=== PATIENT | female | born 1955 | race Caucasian/White ===

== ENCOUNTER 2017-01-02 08:17 | Emergency (ER) | payer OTHER ==
[2017-01-02 08:17] VITALS: BP 138/79
[~2017-01-02 08:17] MED LIST: CARVEDILOL PO; LISINOPRIL10 MG PO; LOT10 PO; MAGNESIUM OXID400 MG PO; MOT800 PO; PRO40 PO; ROB750 PO; VIT B12; VITAMIN D2000 I3 PO; ZETIA10 M1 PO
== END 2017-01-02 09:25 | disposition home or self-care (01) ==
LOC: ED 08:17
DX: S33.5XXA Sprain of ligaments of lumbar spine, initial encounter (principal); I10 Essential (primary) hypertension; Z91.018 Allergy to other foods; Z79.899 Other long term (current) drug therapy; X50.1XXA Overexertion from prolonged static or awkward postures, initial encounter; Y93.89 Activity, other specified; Y99.8 Other external cause status; Y92.89 Other specified places as the place of occurrence of the external cause
CPT/HCPCS: J1885

== ENCOUNTER → 2017-01-13 | Outpatient (CLI) | payer OTHER | END | disposition home or self-care (01) | LOC: MI 12:15 | PROC: BR39ZZZ Magnetic Resonance Imaging (MRI) of Lumbar Spine (ICD-10-PCS; principal; 2017-01-13) | DX: S39.012A Strain of muscle, fascia and tendon of lower back, initial encounter (principal); X58.XXXA Exposure to other specified factors, initial encounter; Y92.9 Unspecified place or not applicable ==

== ENCOUNTER 2017-02-13 06:48 | Emergency (ER) | payer OTHER ==
[2017-02-13 08:16] VITALS: BP 132/74
== END 2017-02-13 08:16 | disposition home or self-care (01) ==
LOC: ED 06:48
DX: M51.26 Other intervertebral disc displacement, lumbar region (principal); I10 Essential (primary) hypertension; Z91.018 Allergy to other foods; Z91.010 Allergy to peanuts
CPT/HCPCS: J1100; J1885